=== PATIENT | female | born 1985 | race Caucasian/White ===

== ENCOUNTER 2022-03-25 06:07 | Emergency (ER) | payer BC ==
[2022-03-25 06:12] VITALS: BP 123/85; PULSE 85; TEMP 97.9; BMI 23.1
[2022-03-25] MEDS ORDERED: diphenhydrAMINE HCL 50 MG CAPSULE PO ONE (06:16)
[2022-03-25] MEDS ORDERED: predniSONE 20 MG TABLET (UD) PO ONE (06:16)
[2022-03-25] MEDS ORDERED: FAMOTIDINE 20 MG TABLET PO ONE (06:17)
[2022-03-25] MEDS ORDERED: predniSONE 20 MG TABLET (UD) ONE (06:37)
[2022-03-25] MEDS ORDERED: diphenhydrAMINE HCL 50 MG CAPSULE ONE (06:38)
[2022-03-25] MEDS ORDERED: FAMOTIDINE 20 MG TABLET ONE (06:38)
== END 2022-03-25 08:53 | disposition home or self-care (01) ==
LOC: FER 06:07
DX: T78.40XA Allergy, unspecified, initial encounter (principal)
CPT/HCPCS: 99283-25

== ENCOUNTER 2022-03-26 00:55 | Observation (INO) | payer BC ==
[2022-03-26] MEDS ORDERED: methylPREDNISolone NA SUCC 125 MG/2 ML VIAL IVPUSH ONE (01:05)
[2022-03-26] MEDS ORDERED: FAMOTIDINE 20 MG/50 ML IVPB 20 MG/50 ML MG IVPB ONE ×2 (01:07→08:32)
[2022-03-26] MEDS ORDERED: SODIUM CHLORIDE 1,000 ML IV STA (01:08)
[2022-03-26] MEDS ORDERED: FAMOTIDINE 10 MG/ML VIAL IVPB ONE (01:09)
[2022-03-26] MEDS ORDERED: methylPREDNISolone NA SUCC 125 MG/2 ML VIAL ONE ×2 (01:09→01:10)
[2022-03-26 01:32] LABS: BASO % 0.2 % (0-2.0); EOS % 0.2 % (0-4.5); HEMATOCRIT 38.2 % (32.4-45.2); HEMOGLOBIN 12.8 GM/dL (10.7-15.3); LYMPH % 25.3 % (8-40); MCH 28.8 pg (25.7-33.7); MCHC 33.5 g/dl (32.0-36.0); MEAN CELL VOLUME 86.1 fl (80-96); MEAN PLT VOLUME 8.5 fl (7.5-11.1); MONO % 5.1 % (3.8-10.2); NEUT % 69.2 % (42.8-82.8); PLATELET COUNT 257 10^3/uL (134-434); RBC 4.43 M/mm3 (3.60-5.2); RDW 14.1 % (11.6-15.6); WHITE BLOOD COUNT 7.5 K/mm3 (4.0-10.0)
[2022-03-26 01:44] LABS: INR 1.06 (0.83-1.09); PROTHROMBIN TIME (PATIENT) 12.2 SEC (9.7-13.0)
[2022-03-26 01:46] LABS: ACTIVATED PTT 33.2 SECONDS (25.2-36.5)
[2022-03-26 01:53] LABS: CALCIUM 9.2 mg/dL (8.5-10.1)
[2022-03-26 01:54] LABS: ALBUMIN 3.8 g/dl (3.4-5.0); BLOOD UREA NITROGEN 16.1 mg/dL (7-18)
[2022-03-26 01:57] LABS: CREATININE 0.6 mg/dL (0.55-1.3)
[2022-03-26 01:58] LABS: BILIRUBIN,TOTAL 0.3 mg/dL (0.2-1); TOT PROT 6.6 g/dl (6.4-8.2)
[2022-03-26] MEDS ORDERED: CALAMINE 8% TOPICAL LOTION 177 ML BOTTLE TP PRN (06:00)
[2022-03-26 07:46] LABS: HEMATOCRIT 35.6 % (32.4-45.2); MCH 29.2 pg (25.7-33.7); MCHC 33.7 g/dl (32.0-36.0); MEAN CELL VOLUME 86.7 fl (80-96); MEAN PLT VOLUME 8.8 fl (7.5-11.1); PLATELET COUNT 220 10^3/uL (134-434); RDW 14.4 % (11.6-15.6); WHITE BLOOD COUNT 9.6 K/mm3 (4.0-10.0)
[2022-03-26 08:09] LABS: ALBUMIN 3.4 g/dl (3.4-5.0); BLOOD UREA NITROGEN 15.8 mg/dL (7-18); CALCIUM 8.6 mg/dL (8.5-10.1); MAGNESIUM 2.2 mg/dL (1.8-2.4)
[2022-03-26 08:12] LABS: CREATININE 0.6 mg/dL (0.55-1.3); PHOSPHOROUS 3.3 mg/dL (2.5-4.9)
[2022-03-26 08:14] LABS: BILIRUBIN,TOTAL 0.3 mg/dL (0.2-1); TOT PROT 5.9 g/dl (6.4-8.2)
[2022-03-26] MEDS ORDERED: ENOXAPARIN NA (PORCINE) 40 MG/0.4 ML DISP.SYRIN SQ ONE (08:31)
[2022-03-26] MEDS ORDERED: predniSONE 20 MG TABLET (UD) ONE (08:31)
[2022-03-26 08:58] LABS: ANISOCYTOSIS 1+; MACROCYTOSIS 0
[2022-03-26 09:15] LABS: URINE APPEARANCE CLEAR; URINE BILIRUBIN NEGATIVE (NEGATIVE); URINE COLOR YELLOW; URINE GLUCOSE (UA) NEGATIVE (NEGATIVE); URINE KETONE NEGATIVE (NEGATIVE); URINE LEUK ESTERASE NEGATIVE (NEGATIVE); URINE NITRITE NEGATIVE (NEGATIVE); URINE PROTEIN NEGATIVE (NEGATIVE); URINE UROBILINOGEN 0.2 mg/dL (0.2-1.0)
[2022-03-26] MEDS ORDERED: CALAMINE 8% TOPICAL LOTION 177 ML BOTTLE TP SCH (10:00)
[2022-03-26] MEDS ORDERED: FAMOTIDINE 20 MG/50 ML IVPB 20 MG/50 ML MG IVPB SCH (10:00)
[2022-03-26] MEDS ORDERED: predniSONE 20 MG TABLET (UD) PO SCH (10:00)
[2022-03-26] MEDS ORDERED: ENOXAPARIN NA (PORCINE) 40 MG/0.4 ML DISP.SYRIN SQ SCH (10:00)
[2022-03-26 12:01] VITALS: BMI 24.2
[2022-03-26 14:17] VITALS: BP 100/62; PULSE 89; TEMP 99
== END 2022-03-26 14:30 | disposition home or self-care (01) ==
LOC: JER 00:55 → INTOOBSV 01:55 → JERBED 01:55 → J6S 09:22
PROVIDERS: ADMIT Internal Medicine; ATTEND Internal Medicine
PROC: 3E033GC Introduction of Other Therapeutic Substance into Peripheral Vein, Percutaneous Approach (ICD-10-PCS; principal; 2022-03-26)
PROC: 3E023GC Introduction of Other Therapeutic Substance into Muscle, Percutaneous Approach (ICD-10-PCS; 2022-03-26)
PROC: 3E033GC Introduction of Other Therapeutic Substance into Peripheral Vein, Percutaneous Approach (ICD-10-PCS; 2022-03-26)
PROC: 3E0337Z Introduction of Electrolytic and Water Balance Substance into Peripheral Vein, Percutaneous Approach (ICD-10-PCS; 2022-03-26)
DX: R21 Rash and other nonspecific skin eruption (principal); Z29.8 Encounter for other specified prophylactic measures
CPT/HCPCS: 36415; 80053; 81003; 83735; 84100; 84703; 85025; 85610; 85730; 93005; 93010; 96361; 96365; 96366; 96372; 96375; 96376; 99285-25; C9803-CS; G0378; U0003; U0005

== ENCOUNTER 2022-12-03 22:50 | Emergency (ER) | payer BC ==
[2022-12-03 23:01] VITALS: BP 114/78; PULSE 86; RESP 16; TEMP 99.4; BMI 24.0
[2022-12-03] MEDS ORDERED: DOXYCYCLINE HYCLATE 100 MG CAPSULE PO ONE (23:19)
[2022-12-03] MEDS ORDERED: IBUPROFEN 400 MG TABLET (FP) PO ONE ×2 (23:19→23:27)
[2022-12-03] MEDS ORDERED: diphenhydrAMINE HCL 25 MG CAPSULE (FP) PO ONE ×2 (23:19→23:26)
[2022-12-03] MEDS ORDERED: SULFAMETHOXAZOLE/TRIMETHOPRIM 800MG/160MG D.S. TABLET PO ONE (23:26)
[2022-12-03] MEDS ORDERED: SULFAMETHOXAZOLE/TRIMETHOPRIM 800MG/160MG D.S. TABLET ONE ×2 (23:27→23:28)
== END 2022-12-03 23:50 | disposition home or self-care (01) ==
LOC: FER 22:50
DX: L03.114 Cellulitis of left upper limb (principal); I89.1 Lymphangitis
CPT/HCPCS: 99283-25